=== PATIENT | male | born 1960 | race Caucasian/White ===

== ENCOUNTER 2018-06-08 19:26 | Emergency (ER) | payer OTHER ==
[~2018-06-08] VITALS: Ht 182.9 cm; Wt 72.6 kg
[2018-06-08 19:55] VITALS: BP 159/103
[2018-06-08] MEDS ORDERED: LIDOCAINE 1%-EPI 1:100,000 20 ML VIAL ONE (20:03)
--- NOTE | 2018-06-08 20:08 | NUR ---
MD BEDSIDE WITH PT
--- NOTE | 2018-06-08 20:17 | NUR ---
PT DECLINED RESOURCES FOR HOMELESS SHELTERS. PT DID NOT WANT TO SIGN PAPERWORK
--- NOTE | 2018-06-08 20:20 | NUR ---
Patient discharged to home in stable condition. Written and verbal after care instructions given. Patient verbalizes understanding of instruction. PT AMBULATED OUT WITH STEADY GAIT NOTED
[2018-06-08] MEDS ORDERED: LIDOCAINE 1%-EPI 1:100,000 50 ML VIAL IJ ONE (20:30)
== END 2018-06-08 20:22 | disposition home or self-care (01) ==
LOC: ER 19:29
DX: M27.2 Inflammatory conditions of jaws (principal); L02.01 Cutaneous abscess of face; F17.200 Nicotine dependence, unspecified, uncomplicated
CPT/HCPCS: 10061; 99284; A4606; J3490 ×2

== ENCOUNTER 2018-08-20 20:17 | Emergency (ER) | payer OTHER ==
[~2018-08-20] VITALS: Ht 182.9 cm; Wt 72.6 kg
--- NOTE | 2018-08-20 20:55 | NUR ---
PT PRESENTED TO THE ER WITH A C/O "MEAT STUCK IN HIS ESOPHAGUS X 23HRS". PT STATED THAT HE WAS EATING ROOT YESTERDAY AND A PIECE GOT STUCK IN HIS "ESOPHAGUS". PT STATED THAT HE IS ABLE TO BREATH WELL, BUT HE HAD NOT BEEN ABLE TO EAT OR DRINK ANYTHING SINCE THE MEAT GOT STUCK.
[2018-08-20] MEDS ORDERED: GLUCAGON,HUMAN RECOMBINANT 1 MG/VIAL VIAL ONE (21:49)
[2018-08-20] MEDS ORDERED: WATER FOR INJECTION,STERILE 10 ML ONE (21:49)
[2018-08-20] MEDS ORDERED: GLUCAGON,HUMAN RECOMBINANT 1 MG/VIAL VIAL IM ONE (22:00)
--- NOTE | 2018-08-20 22:05 | NUR ---
PT TRIED TO DRINK SODA, BUT VOMITTED IT UP.
--- NOTE | 2018-08-20 22:11 | NUR ---
PT TOOK ANOTHER SIP OF SODA AND WAS ABLE TO HOLD IT DOWN. PT HAS AN AUTOMATIC FEELING OF WANTING TO VOMIT ONCE HE DRINKS THE SODA. TOLD PT TO TRY A LITTLE SIP AT A TIME.
--- NOTE | 2018-08-20 23:05 | NUR ---
B PONCHO, PAC IS AT THE BEDSIDE SPEAKING TO THE PT.
--- NOTE | 2018-08-20 23:48 | NUR ---
PT IS STILL UNABLE TO DRINK THE SODA.
--- NOTE | 2018-08-21 00:15 | NUR ---
DOWNTIME ORDER CT CHEST WITHOUT CONTRAST - TO INCLUDE THE NECK FAXED TO RADIOLOGY
--- NOTE | 2018-08-21 00:18 | NUR ---
PT LEFT FOR CT VIA [facility]
--- NOTE | 2018-08-21 00:25 | NUR ---
PT RETURNED FROM CT.
--- NOTE | 2018-08-21 01:16 | NUR ---
BLOOD CULTURES X 2 DRAWN AND SENT TO LAB.
--- NOTE | 2018-08-21 01:16 | NUR ---
18G IV STARTED IN RAC. BLOOD WAS DRAWN AND SENT TO LAB.
[2018-08-21] MEDS ORDERED: PIPERACILLIN /TAZOBACTAM 3.375 G VIAL IV ONE (01:19)
[2018-08-21 01:21] LABS: BASOPHILS # (AUTO) 0.1 /CMM (0.0-0.2); BASOPHILS % (AUTO) 0.4 % (0.0-2.0); EOSINOPHILS % (AUTO) 0.1 % (0.0-6.0); HEMATOCRIT 47 % (39-51); HEMOGLOBIN 15.7 g/dL (13.5-17.5); LYMPHOCYTES # (AUTO) 1.8 /CMM (0.8-4.8); MEAN CORPUSCULAR HGB CONC 34 g/dl (31.0-36.0); MEAN CORPUSCULAR VOLUME 91 fL (80-96); MONOCYTES % (AUTO) 6.7 % (2.0-12.0); NEUTROPHILS # (AUTO) 12.4 /CMM (1.8-8.9); NEUTROPHILS % (AUTO) 80.8 % (43.0-81.0); PLATELET COUNT (AUTO) 283 /CMM (150-450); RED BLOOD CELL COUNT(AUTO) 5.13 MIL/uL (4.5-6.0); WHITE BLOOD COUNT (AUTO) 15.3 K/uL (4.3-11.0)
[2018-08-21] MEDS ORDERED: PIPERACILLIN /TAZOBACTAM 3.375 G in IV D5W 50 ML IV ONE (01:30)
[2018-08-21] MEDS ORDERED: IV NS 0.9% 1,000 ML BAG IV ONE (01:30)
--- NOTE | 2018-08-21 01:30 | NUR ---
DR CAMPUZANO CALLED AND PT TO BE TRANSFERRED TO [facility].
[2018-08-21 01:43] LABS: CALCIUM, SERUM 8.8 mg/dL (8.5-10.1); CREATININE 0.9 mg/dL (0.6-1.3); POTASSIUM 3.8 mmol/L (3.5-5.1)
[2018-08-21 01:49] LABS: ALBUMIN 3.2 g/dL (3.4-5.0); BILIRUBIN,DIRECT 0.2 mg/dL (0.0-0.2); BILIRUBIN,TOTAL 0.7 mg/dL (0.2-1.0); TOTAL PROTEIN, SERUM 8.3 g/dL (6.4-8.2)
[2018-08-21 01:54] VITALS: BP 174/100
--- NOTE | 2018-08-21 01:54 | NUR ---
PT REC'D A WARM BLANKET. PT APPEARS TO BE RESTING COMFORTABLY. PT IS ON THE MONITOR AND CONTINUOUS PULSE OX. VSS. NAD NOTED.
--- NOTE | 2018-08-21 03:03 | NUR ---
ELLY FROM [facility] CALLED PATIENT WILL BE TRANSFERED TO [facility] ROOM 207-A ETA [id number]
--- NOTE | 2018-08-21 03:08 | NUR ---
REPORT GIVEN TO NORM BRIDGES FOR CONTINUATION OF CARE.
--- NOTE | 2018-08-21 03:47 | NUR ---
[facility] AT BEDSIDE FOR TRANSPORT TO [facility] .
== END 2018-08-21 03:49 | disposition short-term general hospital (02) ==
LOC: ER 20:18
DX: T18.128A Food in esophagus causing other injury, initial encounter (principal); J69.0 Pneumonitis due to inhalation of food and vomit; F10.10 Alcohol abuse, uncomplicated; F17.200 Nicotine dependence, unspecified, uncomplicated; Y90.9 Presence of alcohol in blood, level not specified; Z59.0 Homelessness; X58.XXXA Exposure to other specified factors, initial encounter; Y93.89 Activity, other specified; Y92.89 Other specified places as the place of occurrence of the external cause; Y99.8 Other external cause status
CPT/HCPCS: 36415; 71250; 80048; 80076; 83605; 85025; 85730; 87040 ×2; 87081; 96365; 96372; 99285; J1610; J2543 ×2; J7030; J7060

== ENCOUNTER 2018-08-27 07:50 | Emergency (ER) | payer OTHER ==
[~2018-08-27] VITALS: Ht 177.8 cm; Wt 63.5 kg
[2018-08-27 07:52] VITALS: BP 158/80
[2018-08-27] MEDS ORDERED: FLUORESCEIN SODIUM OPHTH 1 EA STRIP ONE (08:06)
--- NOTE | 2018-08-27 08:11 | NUR ---
PT ELOPED FROM ER. AWARE. PT REFUSED TO STAY, PT LEFT IN STABLE CONDTION, AMBULATORY WITH STEADY GAIT. REFUSED TO SIGN ANY PAPERWORK. PT IS AAOX4. NAD NOTED.
[2018-08-27] MEDS ORDERED: TETRACAINE HCL/PF 0.5% UD 2 ML BOTTLE OP ONE ×2 (08:30)
[2018-08-27] MEDS ORDERED: SOD BORATE/BORIC AC/H2O/NACL 118 ML BOTTLE OP ONE (08:30)
[2018-08-27] MEDS ORDERED: ALPRAZOLAM 0.5 MG TABLET PO ONE (08:30)
== END 2018-08-27 08:14 | disposition left against medical advice (07) ==
LOC: ER 07:53
DX: H10.213 Acute toxic conjunctivitis, bilateral (principal); F10.10 Alcohol abuse, uncomplicated; F17.200 Nicotine dependence, unspecified, uncomplicated; Y90.9 Presence of alcohol in blood, level not specified; Z59.0 Homelessness
CPT/HCPCS: 99283; J7030

== ENCOUNTER 2018-08-27 18:47 | Emergency (ER) | payer OTHER ==
[~2018-08-27] VITALS: Ht 177.8 cm; Wt 63.5 kg
[2018-08-27 18:54] VITALS: BP 150/98
--- NOTE | 2018-08-27 19:25 | NUR ---
PT REFUSED JUAN LENS. 3 ATTEMPS MADE, BUT PT COULD NOT TOLERATE INSERTION.
--- NOTE | 2018-08-27 19:35 | NUR ---
PT'S BILATERAL EYES FLUSED WITH NS. APPROX 100ML NS USED. PT COULD NOT TOLERATE ANY FURTHER EYE FLUSHING. PT STATED THAT HE FELT BETTER. NOTIFIED.
--- NOTE | 2018-08-27 19:55 | NUR ---
PT WAS MEDICALLY CLEARED FOR BOOKING. Patient discharged to [facility] in stable condition. Written and verbal after care instructions given. Patient verbalizes understanding of instruction. PT AMBULATED OUT WITH A STEADY GAIT. VSS.
== END 2018-08-27 19:57 | disposition home or self-care (01) ==
LOC: ER 18:51
DX: H57.89 Other specified disorders of eye and adnexa (principal); Z77.098 Contact with and (suspected) exposure to other hazardous, chiefly nonmedicinal, chemicals; F17.200 Nicotine dependence, unspecified, uncomplicated; Z59.0 Homelessness
CPT/HCPCS: 99283; J7030